=== PATIENT | female | born 1975 | race Caucasian/White ===

== ENCOUNTER 2019-05-08 09:00 | Inpatient (IN) | payer OTHER ==
[2019-05-08 09:27] VITALS: BMI 28.0
--- NOTE | 2019-05-08 10:22 | HP ---
CIWA Score Nausea/Vomitin Muscle Tremors: 3 Anxiety: 3 Agitation: 3 Paroxysmal Sweats: 1-Minimal Palms Moist Orientation: 0-Oriented Tacttile Disturbances: 1-Very Mild Itch/Numbness Auditory Disturbances: 0-None Visual Disturbances: 0-None Headache: 2-Mild CIWA-Ar Total Score: 15 - Admission Criteria OASAS Guidelines: Admission for Medically Managed Detox: Requires at least one of the followin. CIWA greater than 12 2. Seizures within the past 24 hours 3. Delirium tremens within the past 24 hours 4. Hallucinations within the past 24 hours 5. Acute intervention needed for co occurring medical disorder 6. Acute intervention needed for co occurring psychiatric disorder 7. Severe withdrawal that cannot be handled at a lower level of care (continued vomiting, continued diarrhea, abnormal vital signs) requiring intravenous medication and/or fluids 8. Admission ROS S - HPI Chief Complaint: i need help to stop drinking alcohol and marijuana Allergies/Adverse Reactions: Allergies Allergy/AdvReac Type Severity Reaction Status Date / Time No Known Allergies Allergy Verified 05/08/19 09:18 History of Present Illness: this 44 years old female with alcohol and marijuana dependence,seeking detox, withdrawal symptom, last treatment 2011 [facility] nicotine dependence 1/2 pack/day denies seizure syncope alcohol related depression tummy tug surgery in 2014 has been attending out patient program and NA,no sponsor yet - Ebola screening Have you traveled outside of the country in the last 21 days: No Have you had contact with anyone from an Ebola affected area: No Do you have a fever: No - Review of Systems Constitutional: Loss of Appetite, Malaise, Night Sweats, Changes in sleep, Weakness EENT: reports: No Symptoms Reported Respiratory: reports: No Symptoms reported Cardiac: reports: No Symptoms Reported GI: reports: Nausea, Vomiting, Abdominal cramping : reports: No Symptoms Reported Musculoskeletal: reports: Back Pain, Muscle Pain Integumentary: reports: Dryness Neuro: reports: Headache, Tremors Endocrine: reports: No Symptoms Reported Hematology: reports: No Symptoms Reported Psychiatric: reports: No Sypmtoms Reported, Judgement Intact, Mood/Affect Appropiate, Orientated x3 Other Systems: Reviewed and Negative Patient History - Patient Medical History Hx Anemia: No Hx Asthma: No Hx Chronic Obstructive Pulmonary Disease (COPD): No Hx Cancer: No Hx Cardiac Disorders: No Hx Congestive Heart Failure: No Hx Hypertension: No Hx Hypercholesterolemia: No Hx Pacemaker: No HX Cerebrovascular Accident: No Hx Seizures: No Hx Dementia: No Hx Diabetes: No Hx Gastrointestinal Disorders: No Hx Liver Disease: No Hx Genitourinary Disorders: No Hx Sexually Transmitted Disorders: No Hx Renal Disease (ESRD): No Hx Thyroid Disease: No Hx Human Immunodeficiency Virus (HIV): No (2018 negative) Hx Hepatitis C: No Hx Depression: Yes (no medication) Hx Suicide Attempt: No Hx Bipolar Disorder: No Hx Schizophrenia: No Other Medical History: no suicidal,no homicidal - Patient Surgical History Hx Abdominal Surgery: Yes (tummy tug surgery 2014) - PPD History Previous Implant?: Yes Documented Results: Negative w/o proof Implanted On Prior [facility] Admission?: No PPD to be Administered?: No - Reproductive History Patient is a Female of Child Bearing Age (11 -55 yrs old): Yes Last Menstrual Period: 05/07/19 Patient : No - Smoking Cessation Smoking history: Current every day smoker Have you smoked in the past 12 months: Yes Aproximately how many cigarettes per day: 10 Cigars Per Day: 0 Hx Chewing Tobacco Use: No Initiated information on smoking cessation: Yes 'Breaking Loose' booklet given: 05/08/19 - Substance & Tx. History Hx Alcohol Use: Yes Hx Substance Use: Yes Substance Use Type: Alcohol, Marijuana Hx Substance Use Treatment: Yes ([address] [place] [id number]) - Substances abused Alcohol Substance route: Oral Frequency: Daily Amount used: 1L bottle of rum a day Age of first use: 41 Date of last use: 05/08/19 Marijuana/Hashish Substance route: Smoking Frequency: Daily Amount used: 3 -4 pulls from a blunt Age of first use: 41 Date of last use: 05/08/19 Family Disease History - Family Disease History Family History: Denies Admission Physical Exam [facility] - Vital Signs Vital Signs: Vital Signs - 24 hr 05/08/19 09:14 Temperature 98.6 F Pulse Rate 109 H Respiratory 18 Rate Blood Pressure 159/108 H - Physical General Appearance: Yes: Moderate Distress, Tremorous, Irritable, Sweating, Anxious HEENTM: Yes: Normal ENT Inspection, LORRIE, Pharynx Normal Respiratory: Yes: Lungs Clear, Normal Breath Sounds, No Respiratory Distress Neck: Yes: Within Normal Limits, Supple, Trachea in good position Breast: Yes: Breast Exam Deferred Cardiology: Yes: Regular Rate, S1, S2, Tachycardia Abdominal: Yes: Within Normal Limits, Normal Bowel Sounds, Soft Genitourinary: Yes: Within Normal Limits Back: Yes: Muscle Spasm Musculoskeletal: Yes: Back pain, Muscle Pain Extremities: Yes: Tremors Neurological: Yes: clinical nurse specialist II-XII NML intact, Fully Oriented, Alert, Motor Strength 5/5 Integumentary: Yes: Dry Lymphatic: Yes: Within Normal Limits - Diagnostic (1) Alcohol dependence with uncomplicated withdrawal Current Visit: Yes Status: Acute (2) Alcohol dependence with intoxication Current Visit: Yes Status: Acute (3) Syncope Current Visit: Yes Status: Acute (4) Nicotine dependence Current Visit: Yes Status: Acute Cleared for Admission S - Detox or Rehab [facility] Level of Care: Medically Managed Detox Regimen/Protocol: Librium Breathalyzer - Breathalyzer Breathalyzer: 0.080 Urine Drug Screen - Test Device Lot number: [id number] Expiration date: 01/22/20 - Control Is test valid?: Yes - Results Drug screen NEGATIVE: No Urine drug screen results: THC-Marijuana Inpatient Rehab Admission - Rehab Decision to Admit Inpatient rehab admission?: No
[2019-05-08] MEDS ORDERED: hydrOXYzine HCL 25 MG TABLET (FP) PO PRN (10:29)
[2019-05-08] MEDS ORDERED: BISMUTH SUBSALICYLATE 262 MG/15 ML BTL PO PRN (10:29)
[2019-05-08] MEDS ORDERED: MAGNESIUM HYDROX 2400MG/30ML ORAL SUSPENSION 30 ML CUP PO PRN (10:29)
[2019-05-08] MEDS ORDERED: MAGNESIUM CITRATE 300 ML BOTTLE PO PRN (10:29)
[2019-05-08] MEDS ORDERED: NICOTINE POLACRILEX 2 MG GUM BUC PRN (10:29)
[2019-05-08] MEDS ORDERED: ACETAMINOPHEN 325 MG TABLET (FP) PO PRN (10:29)
[2019-05-08] MEDS ORDERED: MAG HYDROX/AL HYDROX/SIMETH 30 ML UNIT-DOSE CUP PO PRN (10:29)
[2019-05-08] MEDS ORDERED: METHOCARBAMOL 500 MG TABLET PO PRN (10:29)
[2019-05-08] MEDS: chlordiazePOXIDE HCL 25 MG CAPSULE PO PRN ×2 (12:14→17:38)
[2019-05-08] MEDS: NICOTINE 21 MG/24 HOURS TOPICAL PATCH TD SCH (12:14)
[2019-05-08 14:51] LABS: HEMOGLOBIN 15.9 GM/dL (10.7-15.3); MCH 32.4 pg (25.7-33.7); MCHC 34.5 g/dl (32.0-36.0); MEAN CELL VOLUME 94.1 fl (80-96); MEAN PLT VOLUME 9.8 fl (7.5-11.1); PLATELET COUNT 280 K/MM3 (134-434); RBC 4.89 M/mm3 (3.60-5.2); RDW 13.5 % (11.6-15.6); WHITE BLOOD COUNT 9.1 K/mm3 (4.0-10.0)
[2019-05-08 15:08] LABS: ALBUMIN 4.5 g/dl (3.4-5.0); BILIRUBIN,TOTAL 0.8 mg/dL (0.2-1); BLOOD UREA NITROGEN 12.2 mg/dL (7-18); CALCIUM 9.3 mg/dL (8.5-10.1); CREATININE 0.8 mg/dL (0.55-1.3); POTASSIUM 3.7 mmol/L (3.5-5.1); TOT PROT 8.2 g/dl (6.4-8.2)
[2019-05-08] MEDS: chlordiazePOXIDE HCL 25 MG CAPSULE PO SCH ×2 (16:41→22:51)
[2019-05-08] MEDS ORDERED: cloNIDine HCL 0.1 MG TABLET PO PRN (18:23)
[2019-05-08] MEDS ORDERED: LISINOPRIL 20 MG TABLET (FP) PO ONE (19:07)
[2019-05-08] MEDS: MELATONIN 5 MG TABLETS PO PRN (22:51)
[2019-05-08] MEDS: THIAMINE HCL 100 MG TABLET (FP) PO SCH (22:51)
[2019-05-08] MEDS: ACETAMINOPHEN 325 MG TABLET (FP) PO PRN (22:54)
[2019-05-08] MEDS: MENTHOL/PHENOL 1 EACH UD MM PRN (22:55)
[2019-05-08] MEDS ORDERED: P-EPHED 60MG/TRIPROLIDI 2.5MG TABLET PO PRN (23:52)
[2019-05-09] MEDS: chlordiazePOXIDE HCL 25 MG CAPSULE PO SCH ×4 (06:07→22:17)
[2019-05-09] MEDS: ACETAMINOPHEN 325 MG TABLET (FP) PO PRN ×2 (06:09→22:18)
[2019-05-09] MEDS: PRENATAL VITAMINS W/ FOLIC ACID TABLET (FP) PO SCH (10:40)
[2019-05-09] MEDS: NICOTINE 21 MG/24 HOURS TOPICAL PATCH TD SCH (10:41)
[2019-05-09] MEDS: MENTHOL/PHENOL 1 EACH UD MM PRN (10:44)
[2019-05-09] MEDS: guaiFENesin 200 MG/10 ML 10 ML UNIT-DOSE CUPS PO PRN ×2 (10:44→22:19)
[2019-05-09] MEDS: IBUPROFEN 400 MG TABLET (FP) PO PRN (10:46)
--- NOTE | 2019-05-09 11:30 | EKG ---
Test Reason : Blood Pressure : / mmHG Vent. Rate : 093 BPM Atrial Rate : 093 BPM P-R Int : 134 ms QRS Dur : 082 ms QT Int : 376 ms P-R-T Axes : 078 040 -25 degrees QTc Int : 467 ms NORMAL SINUS RHYTHM BIATRIAL ENLARGEMENT PROLONGED QT ABNORMAL ECG NO PREVIOUS ECGS AVAILABLE Confirmed by LEA MILLS MD ([id number]) on 05/09/2019 11:30:33 AM Referred By: Confirmed By:LEA MILLS MD
--- NOTE | 2019-05-09 11:36 | PN ---
S CIWA - CIWA Score Nausea/Vomitin-Mild Nausea/No Vomiting Muscle Tremors: 3 Anxiety: 3 Agitation: 1-Slight > Activity Paroxysmal Sweats: No Perspiration Orientation: 0-Oriented Tacttile Disturbances: 0-None Auditory Disturbances: 0-None Visual Disturbances: 0-None Headache: 1-Very Mild CIWA-Ar Total Score: 9 S Progress Note (SOAP) Subjective: Patient is anxious but withdrawals have abated from prior night. Objective: 05/09/19 11:34 Vitals: BP:116/75 P:82 R:18 T:97.8F Abnormal Lab Results 05/08/19 05/08/19 10:45 10:45 Hgb 15.9 H Hct 46.0 H Random Glucose 261 H AST 83 H ALT 99 H 05/09/19 11:36 44 years old female with alcohol and marijuana dependence,seeking detox, withdrawal symptom, last treatment 2011 [facility] nicotine dependence 1/2 pack/day denies seizure syncope alcohol related depression [facility] 05/08/19 05/08/19 05/08/19 09:57 10:45 10:45 WBC 9.1 K/mm3 K/mm3 (4.0-10.0) RBC 4.89 M/mm3 M/mm3 (3.60-5.2) Hgb 15.9 GM/dL H GM/dL (10.7-15.3) Hct 46.0 % H % (32.4-45.2) MCV 94.1 fl fl (80-96) MCH 32.4 pg pg (25.7-33.7) MCHC 34.5 g/dl g/dl (32.0-36.0) RDW 13.5 % % (11.6-15.6) Plt Count 280 K/MM3 K/MM3 (134-434) MPV 9.8 fl fl (7.5-11.1) Sodium 138 mmol/L mmol/L (136-145) Potassium 3.7 mmol/L mmol/L (3.5-5.1) Chloride 104 mmol/L mmol/L (98-107) Carbon Dioxide 24 mmol/L mmol/L (21-32) Anion Gap 11 MMOL/L MMOL/L (8-16) BUN 12.2 mg/dL mg/dL (7-18) Creatinine 0.8 mg/dL mg/dL (0.55-1.3) Est GFR (CKD-EPI)AfAm 103.92 Est GFR (CKD-EPI)NonAf 89.66 Random Glucose 261 mg/dL H mg/dL (74-106) Calcium 9.3 mg/dL mg/dL (8.5-10.1) Total Bilirubin 0.8 mg/dL mg/dL (0.2-1) AST 83 U/L H U/L (15-37) ALT 99 U/L H U/L (13-61) Alkaline Phosphatase 113 U/L U/L (45-117) Total Protein 8.2 g/dl g/dl (6.4-8.2) Albumin 4.5 g/dl g/dl (3.4-5.0) POC Urine HCG, Qual Negative RPR Titer HIV 1&2 Antibody Screen HIV P24 Antigen 05/08/19 05/08/19 10:45 10:45 WBC RBC Hgb Hct MCV MCH MCHC RDW Plt Count MPV Sodium Potassium Chloride Carbon Dioxide Anion Gap BUN Creatinine Est GFR (CKD-EPI)AfAm Est GFR (CKD-EPI)NonAf Random Glucose Calcium Total Bilirubin AST ALT Alkaline Phosphatase Total Protein Albumin POC Urine HCG, Qual RPR Titer Nonreactive (NONREACTIVE) HIV 1&2 Antibody Screen Cancelled HIV P24 Antigen Cancelled surgery in 2014 has been attending out patient program and NA,no sponsor yet Assessment: 05/09/19 11:37 1. Dehydration: 2. Elevated LFT's 3. Hyperglycemia Plan: 1. Apparently hemoconcentrated, see elevated Hgb/Hct. Encourage PO Fluids. 2. Elevated LFT's Consistent with alcohol consumption. Advised abstinence and patient educated about effects of alcohol on liver and possible fatty liver and cirrhosis. 3. Hyperglycemia: Not fasting. No history of Diabetes. Do fasting glucose tomorrow. Dr. Watkins
--- NOTE | 2019-05-09 16:20 | CONSULT ---
[facility] Psychiatric Consult - Data Date of interview: 05/09/19 Admission source: [facility] Identifying data: First admission to [facility] for this 44 y/o Czech- [place] female self-referred for detoxification (alcohol, cannabis). Interviewed at [address] [place] [address]. Patient is single, a mother of two, domiciled and currently employed. Substance Abuse History: Confirmed by patient in this session. Details in current [facility] report as follows : Smoking history: Current every day smoker. Have you smoked in the past 12 months: Yes. Aproximately how many cigarettes per day: 10. Cigars Per Day: 0. Hx Chewing Tobacco Use: No. Initiated information on smoking cessation: Yes. 'Breaking Loose' booklet given: . - Substance & Tx. History. Hx Alcohol Use: Yes. Hx Substance Use: Yes. Substance Use Type: Alcohol, Marijuana. Hx Substance Use Treatment: Yes (2011 [facility]). - Substances abused. Alcohol. Substance route: Oral. Frequency: Daily. Amount used: 1L bottle of rum a day. Age of first use: 41. Date of last use: 05/08/19. Marijuana/Hashish. Substance route: Smoking. Frequency: Daily. Amount used: 3 -4 pulls from a blunt. Age of first use: 41. Date of last use: 05/08/19 Medical History: Remarkable for a history of abdominoplasty (2017). Psychiatric History: No reported history of psychiatric hospitalizations. Patient states that she was diagnosed with MDD and PTSD in 2004 during treatment at [facility] in [facility]. Ms Figueroa is not on psychotropic medications. Has no affiliation with any psychiatric OPD care providers. Denies history of suicide attempts. Physical/Sexual Abuse/Trauma History: Patient denies history of abuse. Additional Comment: Urine drug screen results: THC-Marijuana. Noted. Mental Status Exam - Mental Status Exam Alert and Oriented to: Time, Place, Person Cognitive Function: Good Patient Appearance: Well Groomed (overweight) Mood: Hopeful, Euthymic Affect: Appropriate, Normal Range Patient Behavior: Appropriate, Cooperative Speech Pattern: Clear, Appropriate (nepali-fluent) Voice Loudness: Normal Thought Process: Intact, Goal Oriented Thought Disorder: Not Present Hallucinations: Denies Suicidal Ideation: Denies Homicidal Ideation: Denies Insight/Judgement: Poor Sleep: Well Appetite: Good Gait/Station: Normal Psychiatric Findings - Problem List ([place] 1, 2,3) (1) Alcohol dependence with uncomplicated withdrawal Current Visit: Yes Status: Acute (2) Nicotine dependence Current Visit: Yes Status: Chronic (3) Cannabis abuse Current Visit: Yes Status: Chronic - Initial Treatment Plan Initial Treatment Plan: Psychoeducation. Support. Relapse prevention (MAT) revisited. Detoxification. AA meetings. Observation.
[2019-05-09] MEDS: MELATONIN 5 MG TABLETS PO PRN (22:18)
[2019-05-09] MEDS: THIAMINE HCL 100 MG TABLET (FP) PO SCH (22:18)
[2019-05-10] MEDS: chlordiazePOXIDE HCL 25 MG CAPSULE PO SCH ×2 (06:23→10:36)
[2019-05-10] MEDS: NICOTINE 21 MG/24 HOURS TOPICAL PATCH TD SCH (10:36)
[2019-05-10] MEDS: PRENATAL VITAMINS W/ FOLIC ACID TABLET (FP) PO SCH (10:36)
[2019-05-10] MEDS: guaiFENesin 200 MG/10 ML 10 ML UNIT-DOSE CUPS PO PRN (10:37)
[2019-05-10] MEDS: ACETAMINOPHEN 325 MG TABLET (FP) PO PRN (10:37)
--- NOTE | 2019-05-10 13:38 | PN ---
S CIWA - CIWA Score Nausea/Vomitin-No Nausea/No Vomiting Muscle Tremors: None Anxiety: 3 Agitation: 1-Slight > Activity Paroxysmal Sweats: 2 Orientation: 0-Oriented Tacttile Disturbances: 2-Mild Itch/Numbness/Burn Auditory Disturbances: 0-None Visual Disturbances: 0-None Headache: 0-None Present CIWA-Ar Total Score: 8 B[facility] Progress Note (SOAP) Subjective: Anxious (Mild). Patient also reports "Cold" symptoms of recent onset: Sore Throat, Post-Nasal Drip, Cough. Objective: PATIENT A & O X 3, OBSERVED AMBULATING ON UNIT UNASSISTED. IN NO ACUTE DISTRESS. PATIENT AFEBRILE. 05/10/19 13:34 Vital Signs Temperature 97.4 F L 05/10/19 09:42 Pulse Rate 97 H 05/10/19 09:42 Respiratory Rate 18 05/10/19 09:42 Blood Pressure 130/97 05/10/19 09:42 O2 Sat by Pulse Oximetry (%) Laboratory Tests 05/08/19 05/08/19 05/08/19 09:57 10:45 10:45 WBC 9.1 RBC 4.89 Hgb 15.9 H Hct 46.0 H MCV 94.1 MCH 32.4 MCHC 34.5 RDW 13.5 Plt Count 280 MPV 9.8 Sodium 138 Potassium 3.7 Chloride 104 Carbon Dioxide 24 Anion Gap 11 BUN 12.2 Creatinine 0.8 Est GFR (CKD-EPI)AfAm 103.92 Est GFR (CKD-EPI)NonAf 89.66 Random Glucose 261 H Fasting Glucose Calcium 9.3 Total Bilirubin 0.8 AST 83 H ALT 99 H Alkaline Phosphatase 113 Total Protein 8.2 Albumin 4.5 POC Urine HCG, Qual Negative RPR Titer HIV 1&2 Ag/Ab, 4th Gen HIV 1&2 Antibody Screen HIV P24 Antigen 05/08/19 05/08/19 05/08/19 10:45 10:45 10:50 WBC RBC Hgb Hct MCV MCH MCHC RDW Plt Count MPV Sodium Potassium Chloride Carbon Dioxide Anion Gap BUN Creatinine Est GFR (CKD-EPI)AfAm Est GFR (CKD-EPI)NonAf Random Glucose Fasting Glucose Calcium Total Bilirubin AST ALT Alkaline Phosphatase Total Protein Albumin POC Urine HCG, Qual RPR Titer Nonreactive HIV 1&2 Ag/Ab, 4th Gen HIV 1&2 Antibody Screen Cancelled Cancelled HIV P24 Antigen Cancelled Cancelled 05/09/19 05/10/19 10:00 07:30 WBC RBC Hgb Hct MCV MCH MCHC RDW Plt Count MPV Sodium Potassium Chloride Carbon Dioxide Anion Gap BUN Creatinine Est GFR (CKD-EPI)AfAm Est GFR (CKD-EPI)NonAf Random Glucose Fasting Glucose 91 Calcium Total Bilirubin AST ALT Alkaline Phosphatase Total Protein Albumin POC Urine HCG, Qual RPR Titer HIV 1&2 Ag/Ab, 4th Gen Non reactive HIV 1&2 Antibody Screen HIV P24 Antigen LABS NOTED. 05/10/19 13:37 Assessment: 05/10/19 13:34 WITHDRAWAL SYMPTOMS. Plan: CONTINUE DETOX. MUCINEX FOR POST-NASAL DRIP AND COUGH. CEPASTAT LOZENGES FOR SORE THROAT. PATIENT ADVISED TO INCREASE DAILY PO WATER INTAKE. REPORTS THAT SHE IS TOLERATING CURRENT WITHDRAWAL / DETOX SYMPTOMS WELL. AT PATIENT'S REQUEST, CURRENT DETOX MEDICATION REGIMEN MODIFIED SO THAT PATIENT MAY BE DISCHARGED TOMORROW, 05/11/2019, SHE HAS TO RETURN TO WORK IN AM ON 05/12/2019.
[2019-05-10] MEDS: chlordiazePOXIDE HCL 10 MG CAPSULE PO SCH ×2 (17:35→22:10)
[2019-05-10] MEDS: ALBUTEROL SO4 8 GM HFA INHALER IH PRN (17:36)
[2019-05-10] MEDS: THIAMINE HCL 100 MG TABLET (FP) PO SCH (22:09)
[2019-05-10] MEDS: guaiFENesin 600 MG TABLET.ER (FP) PO SCH (22:09)
[2019-05-10] MEDS: MELATONIN 5 MG TABLETS PO PRN (22:10)
[2019-05-10] MEDS: IBUPROFEN 400 MG TABLET (FP) PO PRN (22:11)
[2019-05-11] MEDS ORDERED: chlordiazePOXIDE HCL 10 MG CAPSULE PO PRN
[2019-05-11] MEDS: ALBUTEROL SO4 8 GM HFA INHALER IH PRN (00:42)
[2019-05-11] MEDS ORDERED: chlordiazePOXIDE HCL 10 MG CAPSULE PO ONE (05:00)
[2019-05-11] MEDS ORDERED: chlordiazePOXIDE HCL 10 MG CAPSULE PO SCH (05:00)
[2019-05-11 06:41] VITALS: BP 121/89; PULSE 74; TEMP 96.9
[2019-05-11] MEDS: PRENATAL VITAMINS W/ FOLIC ACID TABLET (FP) PO SCH (10:57)
[2019-05-11] MEDS: NICOTINE 21 MG/24 HOURS TOPICAL PATCH TD SCH (10:57)
[2019-05-11] MEDS: guaiFENesin 600 MG TABLET.ER (FP) PO SCH (10:57)
--- NOTE | 2019-05-11 16:27 | DS ---
[facility] Detox Discharge Summary Admission Date: 05/08/19 Discharge Date: 05/11/19 - History Present History: Alcohol Dependence Additional Comments: 44 years old female admitted on 05/08/19 for acute alcohol withdrawal sx management doing well with librium detox regimen no complication through out the detox stay 1st admission to [facility] patient prefers community support approach Pertinent Past History: bond writer called [phone] to [id number] [place] [address] to Ms. Figueroa regarding positive TB Test QFT indicates on 05/08/19 10:45 AM patient reporting that positive ppd since 2004 during , received treated post , current chest x ray 07/2018 result none active TB positive ppd added to problem list for future reference - Physical Exam Results Vital Signs: Vital Signs Temperature 96.9 F L 05/11/19 06:40 Pulse Rate 74 05/11/19 06:40 Respiratory Rate 16 05/11/19 06:40 Blood Pressure 121/89 05/11/19 06:40 O2 Sat by Pulse Oximetry (%) Pertinent Admission Physical Exam Findings: alcohol withdrawal sx Laboratory Last Values WBC 9.1 K/mm3 (4.0-10.0) 05/08/19 10:45 RBC 4.89 M/mm3 (3.60-5.2) 05/08/19 10:45 Hgb 15.9 GM/dL (10.7-15.3) H 05/08/19 10:45 Hct 46.0 % (32.4-45.2) H 05/08/19 10:45 MCV 94.1 fl (80-96) 05/08/19 10:45 MCH 32.4 pg (25.7-33.7) 05/08/19 10:45 MCHC 34.5 g/dl (32.0-36.0) 05/08/19 10:45 RDW 13.5 % (11.6-15.6) 05/08/19 10:45 Plt Count 280 K/MM3 (134-434) 05/08/19 10:45 MPV 9.8 fl (7.5-11.1) 05/08/19 10:45 Sodium 138 mmol/L (136-145) 05/08/19 10:45 Potassium 3.7 mmol/L (3.5-5.1) 05/08/19 10:45 Chloride 104 mmol/L (98-107) 05/08/19 10:45 Carbon Dioxide 24 mmol/L (21-32) 05/08/19 10:45 Anion Gap 11 MMOL/L (8-16) 05/08/19 10:45 BUN 12.2 mg/dL (7-18) 05/08/19 10:45 Creatinine 0.8 mg/dL (0.55-1.3) 05/08/19 10:45 Est GFR (CKD-EPI)AfAm 103.92 05/08/19 10:45 Est GFR (CKD-EPI)NonAf 89.66 05/08/19 10:45 Random Glucose 261 mg/dL (74-106) H 05/08/19 10:45 Fasting Glucose 91 mg/dL (74-106) 05/10/19 07:30 Calcium 9.3 mg/dL (8.5-10.1) 05/08/19 10:45 Total Bilirubin 0.8 mg/dL (0.2-1) 05/08/19 10:45 AST 83 U/L (15-37) H 05/08/19 10:45 ALT 99 U/L (13-61) H 05/08/19 10:45 Alkaline Phosphatase 113 U/L (45-117) 05/08/19 10:45 Total Protein 8.2 g/dl (6.4-8.2) 05/08/19 10:45 Albumin 4.5 g/dl (3.4-5.0) 05/08/19 10:45 POC Urine HCG, Qual Negative 05/08/19 09:57 RPR Titer Nonreactive (NONREACTIVE) 05/08/19 10:45 HIV 1&2 Ag/Ab, 4th Gen Non reactive (Non Reactive) 05/09/19 10:00 HIV 1&2 Antibody Screen Cancelled 05/08/19 10:45 HIV P24 Antigen Cancelled 05/08/19 10:45 TB (QFT) Incubation (.) 05/08/19 10:45 TB Test (QFT) Nil 1.05 IU/mL (.) 05/08/19 10:45 TB Test (QFT) Mitogen >10.00 IU/mL (.) 05/08/19 10:45 TB Test (QFT) Antigen 8.43 IU/mL (.) 05/08/19 10:45 TB Test (QFT) Positive (Negative) H 05/08/19 10:45 TB Positive Criteria (.) 05/08/19 10:45 lab noted positive QFT - Treatment Hospital Course: Detox Protocol Followed, Detoxed Safely, Responded well, Discharged Condition Good, Rehab Referral Accepted Patient has Accepted a Rehab Referral to: community support approach - Medication Discharge Medications: Ambulatory Orders NK [No Known Home Medication] 05/08/19 - Diagnosis (1) Positive PPD Status: Chronic (2) Alcohol dependence with uncomplicated withdrawal Status: Acute (3) Nicotine dependence Status: Acute Qualifiers: Nicotine product type: cigarettes Substance use status: in withdrawal Qualified Code(s): F17.213 - Nicotine dependence, cigarettes, with withdrawal - AMA Did Patient Leave Against Medical Advice: No CIWA Score - CIWA Score Nausea/Vomitin-No Nausea/No Vomiting Muscle Tremors: None Anxiety: 2 Agitation: 1-Slight > Activity Paroxysmal Sweats: No Perspiration Orientation: 0-Oriented Tacttile Disturbances: 1-Very Mild Itch/Numbness Auditory Disturbances: 0-None Visual Disturbances: 0-None Headache: 0-None Present CIWA-Ar Total Score: 4
[2019-05-12] MEDS ORDERED: chlordiazePOXIDE HCL 10 MG CAPSULE PO SCH (05:00)
[2019-05-13] MEDS ORDERED: chlordiazePOXIDE HCL 10 MG CAPSULE PO ONE (05:00)
== END 2019-05-11 09:45 | disposition home or self-care (01) | DRG 775 ==
LOC: YASAS 09:00 → Y3N 11:09
PROVIDERS: ADMIT Surgery; ATTEND Surgery
PROC: HZ2ZZZZ Detoxification Services for Substance Abuse Treatment (ICD-10-PCS; principal; 2019-05-08)
DX: F10.230 Alcohol dependence with withdrawal, uncomplicated (principal); F10.220 Alcohol dependence with intoxication, uncomplicated; F12.10 Cannabis abuse, uncomplicated; F17.213 Nicotine dependence, cigarettes, with withdrawal; E86.0 Dehydration; R73.9 Hyperglycemia, unspecified; R94.5 Abnormal results of liver function studies; R76.11 Nonspecific reaction to tuberculin skin test without active tuberculosis; R00.0 Tachycardia, unspecified
CPT/HCPCS: 36415; 80053; 81025; 82947; 85027; 86480; 86593; 87389; 93005; 93010; J0735